=== PATIENT | male | born 1960 | race Caucasian/White ===

== ENCOUNTER → 2022-01-26 | Outpatient (CLI) | payer OTHER ==
[~2022-01-26] MED LIST: ACET325T21 PO; ALBU0.63 NEB; ASPI81TA59 PO; ATOR40TA59 PO; BISA10SU55 RC; CLON-77 PO; DIPH25TA64 PO; DOCU-109 PO; DULO60CA7 PO; FAMO10TA26 PO; FOLI0.8T5 PO; GUAI-108 PO; HYDR100T24 PO; HYDR453.3 TP; HYPR15DR5 OP; IPRA0.2S5 IH; LACT10PA3 PO; LEVE500T21 PO; LOPE2TAB27 PO; LOSA100T2 PO; MECL12.582 PO; NITR0.4T24 SL; PHEN100C PO; PHEN300C4 PO; POTA20TA4 PO; RIVA20TA2 PO; SENN8.8S13 PO; TRAZ-123 PO; [UNRECOGNIZED DRUG - CODE] PO
--- NOTE | 2022-01-26 14:04 | KCIC ---
EXAM: Brain MRI without contrast. HISTORY: Cerebral infarction. TECHNIQUE: Multiplanar, multisequence magnetic resonance imaging of the brain was performed without c ontrast. COMPARISON: CT dated 09/14/2019. FINDINGS: There is no restricted diffusion to suggest acute or subacute infarction. There is encephal omalacia due to chronic infarction involving the right frontal, parietal and occipital lobes. There a re nonspecific scattered white matter lesions likely due to chronic small vessel disease. There is ce rebral volume loss. There is no mass effect or midline shift. There is no hydrocephalus. There is no acute hemorrhage. Th e orbits are unremarkable. There is paranasal sinus mucosal thickening. There is minimal mastoid flui d. There are normal flow voids within the cerebral vessels. There is no suspicious calvarial lesion. IMPRESSION: 1. No acute intracranial finding. 2. 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 3. Scattered white matter lesions, likely due to chronic small vessel disease in a patient of this ag e. 4. Cerebral volume loss. Electronically signed by: Natali Montano MD (01/26/2022 2:01 PM) [facility]
== END ==
LOC: KCIC MRI 12:20
PROVIDERS: ATTEND Internal Medicine
DX: I63.89 Other cerebral infarction (principal); R90.82 White matter disease, unspecified; J34.89 Other specified disorders of nose and nasal sinuses; R11.0 Nausea; R25.9 Unspecified abnormal involuntary movements; R56.9 Unspecified convulsions; Z87.820 Personal history of traumatic brain injury
CPT/HCPCS: 70551